=== PATIENT | female | born 1940 | race Caucasian/White ===

== ENCOUNTER → 2017-05-20 | Outpatient (CLI) | payer OTHER ==
--- NOTE | 2017-05-20 12:13 | VAS ---
STUDY: CAROTID DUPLEX DOPPLER EXAMINATION History: Right carotid artery stenosis. Comparison: December 14, 2016. Technique: Multiple leach scale and color flow Doppler images of the right and left carotid arterial system were obtained. The vertebral arterial system was evaluated as well. Findings: Normal color flow Doppler is seen throughout the right and left carotid arterial system. There is no significant plaque involving the right or left carotid arteries. There is mild elevation of peak systolic velocity in the right internal carotid artery to 105 cm/sec . There is mild elevation of peak systolic velocity in the left internal carotid artery to 109 cm/se c. Vertebral artery flow is antegrade bilaterally. IMPRESSION: 1. Mild elevation of peak systolic velocity in the internal carotid arteries bilaterally, most cons istent with 0-49% stenosis by modified NASCET criteria. Reported By:
== END | disposition home or self-care (01) ==
LOC: RAD 10:50
PROVIDERS: ATTEND Obstetrics & Gynecology Obstetrics
DX: I65.21 Occlusion and stenosis of right carotid artery (principal)
CPT/HCPCS: 93880